=== PATIENT | female | born 1945 | race Caucasian/White ===

== ENCOUNTER 2022-01-08 09:53 | Inpatient (IN) | payer MEDICARE ==
[~2022-01-08] VITALS: Ht 152.4 cm; Wt 99.8 kg
[2022-01-08] MEDS ORDERED: MORPHINE SULFATE 2 MG/ML CPJ (NOT FOR IM USE) IV ONE (11:30)
[2022-01-08] MEDS ORDERED: SODIUM CHLORIDE 0.9% 1,000 ML IV ONE (11:30)
[2022-01-08] MEDS ORDERED: MORPHINE SULFATE 4 MG/ML CPJ (NOT FOR IM USE) IV ONE ×3 (11:30→17:00)
[2022-01-08 11:55] LABS: BASOPHILS % 0.2 % (0.0-2.0); EOSINOPHILS % 0.4 % (0.0-5.0); HEMATOCRIT. 40.6 % (36.0-48.0); HEMOGLOBIN. 13.5 g/dL (12.0-16.0); LYMPHOCYTES % 12.9 % (20.0-50.0); MEAN CORPUSCULAR HEMOGLOBIN 30.9 pg (28.0-32.0); MEAN CORPUSCULAR VOLUME 93.1 fL (81.0-99.0); MEAN PLATELET VOLUME 8.6 fl (7.4-10.4); MONOCYTES % 6.1 % (2.0-8.0); NEUTROPHILS % 80.4 % (40.0-76.0); PLATELET 317 x1000/uL (130-400); RED BLOOD CELL COUNT 4.37 mill/uL (4.2-5.4); RED CELL DISTRIBUTION WIDTH 13.6 % (11.6-14.6)
[2022-01-08 12:09] LABS: CHLORIDE 101 mEq/L (98-107)
[2022-01-08] MEDS ORDERED: PIPERACILLIN/TAZ 3.375G PREMIX 50 ML IV NR (13:00)
[2022-01-08] MEDS ORDERED: PIPERACILLIN/TAZOBACTAM 3.375GM/50ML PREMIX IV ONE (13:00)
[2022-01-08] MEDS ORDERED: MORPHINE SULFATE 4 MG/ML CPJ (NOT FOR IM USE) IV SCH (13:45)
[2022-01-08] MEDS ORDERED: MORPHINE SULFATE 2 MG/ML CPJ (NOT FOR IM USE) IV SCH (13:45)
[2022-01-08 15:23] LABS: CLARITY URINE CLEAR (CLEAR); COLOR URINE YELLOW (YELLOW); KETONES URINE 1+ (NEGATIVE); LEUKOCYTE ESTERASE URINE NEGATIVE (NEGATIVE); NITRITE URINE NEGATIVE (NEGATIVE); OCCULT BLOOD URINE TRACE (NEGATIVE); PROTEIN URINE NEGATIVE (NEGATIVE); SPECIFIC GRAVITY URINE 1.012 (1.005-1.030); UROBILINOGEN URINE 0.2 E.U./dL (0.2-1.0)
[2022-01-08 20:00] VITALS: BP 120/65
[2022-01-08] MEDS ORDERED: DOCUSATE SODIUM 100MG CAPSULE PO PRN (21:15)
[2022-01-08] MEDS ORDERED: PIPERACILLIN/TAZ 3.375G PREMIX 50 ML IV SCH (21:15)
[2022-01-08] MEDS ORDERED: IPRATROPIUM/ALBUTEROL 0.5-3(2.5)MG/3ML NEB HHN PRN (21:15)
[2022-01-08] MEDS ORDERED: ONDANSETRON HCL 4MG/2ML INJ IV PRN (21:15)
[2022-01-08] MEDS ORDERED: HYDROMORPHONE HCL/PF 2MG/ML CPJ IV PRN (21:15)
[2022-01-08] MEDS: ENOXAPARIN 40MG/0.4ML SYR SUBCUT SCH (22:18)
[2022-01-08] MEDS: ZOLPIDEM TARTRATE 5MG TABLET PO PRN (22:19)
[2022-01-08] MEDS: PIPERACILLIN/TAZOBACTAM 3.375G in DEXT 5% WATER 50ML IV SCH (22:30)
[2022-01-08] MEDS: DEXT 5%/0.45% NACL KCL 20MEQ/L 1,000 ML IV SCH (22:30)
[2022-01-08] MEDS ORDERED: *PATIENT'S OWN MEDICATION STORAGE XX SCH (22:30)
[2022-01-08 23:22] VITALS: BP 120/65
[2022-01-09] VITALS: BP 137/51
[2022-01-09] MEDS ORDERED: FLUT1DIS3 INH (00:56)
[2022-01-09] MEDS ORDERED: MV,C400T2 PO (00:57)
[2022-01-09] MEDS ORDERED: TRIA1TAB92 MT (00:58)
[2022-01-09] MEDS ORDERED: OLME20TA22 MT (00:59)
[2022-01-09] MEDS ORDERED: ALBU6.7H9 INH (01:01)
[2022-01-09] MEDS ORDERED: TOPUD PO (01:01)
[2022-01-09 04:00] VITALS: BP 116/61
[2022-01-09] MEDS: PIPERACILLIN/TAZOBACTAM 3.375G in DEXT 5% WATER 50ML IV SCH ×3 (06:02→21:33)
[2022-01-09 07:03] LABS: BASOPHILS % 0.3 % (0.0-2.0); EOSINOPHILS % 1.3 % (0.0-5.0); HEMATOCRIT. 40.7 % (36.0-48.0); HEMOGLOBIN. 13.7 g/dL (12.0-16.0); LYMPHOCYTES % 19.7 % (20.0-50.0); MEAN CORPUSCULAR HEMOGLOBIN 31.1 pg (28.0-32.0); MEAN CORPUSCULAR VOLUME 92.7 fL (81.0-99.0); MEAN PLATELET VOLUME 8.7 fl (7.4-10.4); MONOCYTES % 7.5 % (2.0-8.0); NEUTROPHILS % 71.2 % (40.0-76.0); PLATELET 339 x1000/uL (130-400); RED BLOOD CELL COUNT 4.39 mill/uL (4.2-5.4); RED CELL DISTRIBUTION WIDTH 13.7 % (11.6-14.6)
[2022-01-09 07:14] LABS: CHLORIDE 104 mEq/L (98-107)
[2022-01-09 08:00] VITALS: BP 122/66
[2022-01-09] MEDS ORDERED: FAMOTIDINE 20MG/2ML VIAL IV SCH (09:00)
[2022-01-09] MEDS: ACETAMINOPHEN 325MG TABLET PO PRN (09:48)
[2022-01-09 12:00] VITALS: BP 119/60
[2022-01-09] MEDS: DEXT 5%/0.45% NACL KCL 20MEQ/L 1,000 ML IV SCH ×2 (13:49→21:33)
[2022-01-09 16:00] VITALS: BP 146/55
[2022-01-09 20:00] VITALS: BP 144/74
[2022-01-09] MEDS: ENOXAPARIN 40MG/0.4ML SYR SUBCUT SCH (21:33)
[2022-01-09] MEDS: TRAMADOL 50MG TABLET PO PRN (21:34)
[2022-01-09] MEDS: ZOLPIDEM TARTRATE 5MG TABLET PO PRN (21:43)
[2022-01-10] VITALS: BP 114/60
[2022-01-10] MEDS: ACETAMINOPHEN 325MG TABLET PO PRN (02:20)
[2022-01-10 04:00] VITALS: BP 125/63
[2022-01-10] MEDS: PIPERACILLIN/TAZOBACTAM 3.375G in DEXT 5% WATER 50ML IV SCH ×3 (05:16→21:43)
[2022-01-10] MEDS: DEXT 5%/0.45% NACL KCL 20MEQ/L 1,000 ML IV SCH ×2 (05:16→17:35)
[2022-01-10 08:00] VITALS: BP 110/53
[2022-01-10] MEDS ORDERED: FAMOTIDINE 20MG TABLET PO SCH (09:00)
[2022-01-10] MEDS: TRAMADOL 50MG TABLET PO PRN ×2 (10:01→21:45)
[2022-01-10 12:00] VITALS: BP 110/53
[2022-01-10 16:00] VITALS: BP 130/63
[2022-01-10] MEDS: PANTOPRAZOLE SODIUM 40 MG/VIAL IV SCH (17:34)
[2022-01-10] MEDS ORDERED: IOHEXOL-300 100 ML BOTTLE ONE (18:56)
[2022-01-10 20:00] VITALS: BP 163/74
[2022-01-10 21:11] LABS: TOTAL IRON BINDING CAPACITY 555 ug/dL (250-450)
[2022-01-10] MEDS: ENOXAPARIN 30MG/0.3ML SYR SUBCUT SCH (21:44)
[2022-01-10 22:00] LABS: FERRITIN 60 ng/mL (10-291)
[2022-01-10 22:39] LABS: VITAMIN B12 SERUM > 2000.0 pg/mL (211-911)
[2022-01-11] VITALS: BP 139/56
[2022-01-11] MEDS: ACETAMINOPHEN 325MG TABLET PO PRN (01:08)
[2022-01-11] MEDS: ZOLPIDEM TARTRATE 5MG TABLET PO PRN (01:08)
[2022-01-11] MEDS: DEXT 5%/0.45% NACL KCL 20MEQ/L 1,000 ML IV SCH ×2 (01:09→12:07)
[2022-01-11] MEDS: PIPERACILLIN/TAZOBACTAM 3.375G in DEXT 5% WATER 50ML IV SCH (05:41)
[2022-01-11 06:00] VITALS: BP 134/60
[2022-01-11 06:08] LABS: BASOPHILS % 0.3 % (0.0-2.0); EOSINOPHILS % 2.5 % (0.0-5.0); HEMATOCRIT. 38.1 % (36.0-48.0); HEMOGLOBIN. 12.9 g/dL (12.0-16.0); LYMPHOCYTES % 24.1 % (20.0-50.0); MEAN CORPUSCULAR HEMOGLOBIN 31.4 pg (28.0-32.0); MEAN CORPUSCULAR VOLUME 92.7 fL (81.0-99.0); MEAN PLATELET VOLUME 8.4 fl (7.4-10.4); MONOCYTES % 9.2 % (2.0-8.0); NEUTROPHILS % 63.9 % (40.0-76.0); PLATELET 284 x1000/uL (130-400); RED BLOOD CELL COUNT 4.11 mill/uL (4.2-5.4); RED CELL DISTRIBUTION WIDTH 13.5 % (11.6-14.6)
[2022-01-11 06:37] LABS: CHLORIDE 103 mEq/L (98-107)
[2022-01-11 08:00] VITALS: BP 139/62
[2022-01-11] MEDS ORDERED: METR-167 MT (10:53)
[2022-01-11] MEDS ORDERED: LEVO500T90 MT (10:53)
[2022-01-11 12:00] VITALS: BP 116/74
[2022-01-11] MEDS: PANTOPRAZOLE SODIUM 40 MG/VIAL IV SCH (12:08)
[2022-01-11] MEDS: ENOXAPARIN 30MG/0.3ML SYR SUBCUT SCH (12:12)
[2022-01-11] MEDS ORDERED: HYDR-4001 MT (12:34)
[2022-01-11 12:51] VITALS: BP 116/74
== END 2022-01-11 13:34 | disposition home or self-care (01) | DRG 392 ==
LOC: ER 09:53 → 6EST 17:00 → ENRESERV 17:19
PROVIDERS: ADMIT Internal Medicine Pulmonary Disease; ATTEND Internal Medicine Pulmonary Disease
DX: K57.30 Diverticulosis of large intestine without perforation or abscess without bleeding (principal); E87.1 Hypo-osmolality and hyponatremia; Z68.41 Body mass index [BMI] 40.0-44.9, adult; D64.9 Anemia, unspecified; E66.9 Obesity, unspecified; J44.9 Chronic obstructive pulmonary disease, unspecified; I10 Essential (primary) hypertension; K76.0 Fatty (change of) liver, not elsewhere classified; K52.9 Noninfective gastroenteritis and colitis, unspecified; Z72.89 Other problems related to lifestyle
CPT/HCPCS: 36415; 74176; 74177; 76700; 80048; 80053; 81003; 82607; 82728; 82746; 83540; 83550; 84484; 85025; 85044; 97161; 97162; 99285; C9113; J1170; J1650; J2270; J2405; J2543; J3490; J7060; Q9967